=== PATIENT | female | born 1975 | race Caucasian/White ===

== ENCOUNTER 2017-04-30 20:20 | Emergency (ER) | payer MEDICARE, OTHER ==
[~2017-04-30 20:20] MED LIST: AMOUR THYROID PO; BETA GLUCAN PO; BIOTIN5 MG OR; CEREFOLI1 PO; CORTEF20 MG PO; CORTEF5 PO; CYTO5 PO; ENZYME DIGES OR; FISH-EPA1000 MG PO; FOLIC PO; KLONO1 PO; LEVAQUIN750 MG PO; MAGNESIUM CITRATE PO; MAGOX4 PO; MSM1000 M1 OR; MSM1000 MG PO; MULTIVITAMI1 PO; NEXIUM40 PO; OPANA ER15 MG PO; ORAZINC110 MG PO; OXYCOD PO; PROZ10 PO; SINGULAIR1 PO; SYN075 PO; T PO; VITAMIN D31000 UNIT PO; ZANAFLEX2 MG PO
== END 2017-04-30 23:15 | disposition home or self-care (01) ==
LOC: ER 20:20
DX: M54.2 Cervicalgia (principal); G89.29 Other chronic pain; J45.909 Unspecified asthma, uncomplicated; Z86.73 Personal history of transient ischemic attack (TIA), and cerebral infarction without residual deficits; F41.9 Anxiety disorder, unspecified; F32.9 Major depressive disorder, single episode, unspecified; K21.9 Gastro-esophageal reflux disease without esophagitis; Z88.1 Allergy status to other antibiotic agents; Z88.8 Allergy status to other drugs, medicaments and biological substances; Z88.5 Allergy status to narcotic agent; Z79.899 Other long term (current) drug therapy
CPT/HCPCS: 72125; 96372; 99284; A9270-GY; J2360